=== PATIENT | male | born 1985 | race Caucasian/White ===

== ENCOUNTER → 2019-02-03 16:55 | Outpatient (CLI) | payer BC, SELFPAY ==
[2019-02-03 18:59] LABS: Uric Acid 3.3 mg/dL (2.6-7.2)
[2019-02-03 19:14] LABS: Amphetamine/Metha Screen,Urine Positive ng/mL (<1000); Barbiturates Screen,Urine Negative ng/mL (<200); Benzodiazepines Screen,Urine Negative ng/mL (<200); Cannabinoid Screen,Urine Positive ng/mL (<50); Cocaine Screen,Urine Negative ng/mL (<300); Methadone Screen,Urine Negative ng/mL (<300); Opiate Screen,Urine Negative ng/mL (<300); Phencyclidine Screen,Urine Negative ng/mL (<25)
[2019-02-05 15:03] LABS: RA Latex Turbid. <10.0 IU/mL (0.0-13.9)
[2019-02-05 19:45] LABS: Antinuclear Antibodies, IFA Positive (.)
[2019-02-09 19:10] LABS: Amphetamine Positive (.); Amphetamines Positive (.); Methamphetamine Positive (.)
[2019-02-10 14:15] LABS: Amphetamine (GC/MS) 1286 ng/mL (Cutoff=500); Methamphetamine (GC/MS) 1454 ng/mL (Cutoff=500)
== END ==
PROVIDERS: Visit Provider Emergency Medicine
DX: R53.83 Other fatigue (principal); Z79.899 Other long term (current) drug therapy
CPT/HCPCS: 80305; 80324; 84550; 86038; 86431; 86618

== ENCOUNTER 2022-01-23 10:28 | Emergency (ER) | payer BC, SELFPAY ==
[2022-01-23] VITALS (7 sets, daily range): BP systolic 109–151; BP diastolic 63–89; PULSE 98–148; RESP 16–20; TEMP 37.2–37.7; O2SAT 95–98; BMI 22.9
--- NOTE | 2022-01-23 10:28 | XR_ITS ---
FINAL REPORT CLINICAL HISTORY: psych clearance, hallucination FINDINGS: SINGLE VIEW CHEST. The heart is normal in size. The mediastinum is unremarkable. The lungs are clear. There is no pneumothorax. IMPRESSION: No acute process. Reviewed, Interpreted and Dictated by Samuel Merida MD Transcribed by Tracy Lepe Authenticated and [facility]
--- NOTE | 2022-01-23 10:31 | PC.NURSE ---
ANABELLE MCKEON at
--- NOTE | 2022-01-23 10:34 | PC.NURSE ---
EKG delayed due to patient being very fidgety and non compliant with laying still. Will attempt once patient has calmed down. MD is aware
--- NOTE | 2022-01-23 10:35 | HMH.EDGENADL ---
ED Disposition Clinical Impression: Acute psychosis Disposition: Xfer Psychiatric Hosp Condition on Discharge: Fair Referrals: Nathanael Mendez MD [Primary Care Provider] - - Critical Care Critical Care Time: Yes Attestation: On 01/23/22, the high probability of a clinically significant, sudden or life threatening deterioration of the following system(s) required my full and direct attention, intervention and personal management. The time I documented below is in addition to time spent performing reported procedures but includes the following listed in this critical care notation. Total Critical Care Time: 45 Vital system(s) involved:: Central Nervous System My critical care processes included: Assessment & monitoring of V/S, Initial and Re-exams, Data Review/Interpretation, Coordinating Care, Medication Orders and management, Documentation Medical Decision Making - Medical Records Medical records reviewed: Yes: I reviewed the patient's medical records. MR Comment: Reviewed his only primary care visit on our medical record system, which was with Dr. Mendez in 2019 as an initial visit for chronic joint pains. He was referred to pain management. He had drug screens positive for amphetamines and methamphetamine. - Jeff Inquiry Pt receiving controlled substance: Yes Jeff was queried for this patient: Yes Risks and benefits of using a controlled substance: were not discussed with pt by me Comment: Noted to have 2 prescriptions for Percocet in September from Dr. Salguero Vital Signs: 01/23/22 10:24 01/23/22 12:03 01/23/22 12:30 Temperature 99.8 F H Temperature Source Oral Pulse Rate 109 H 107 H Pulse Rate [Left Radial] 148 H Respiratory Rate 20 16 Blood Pressure 140/74 132/77 Blood Pressure [Right Arm] 151/89 H Blood Pressure Mean 83 Blood Pressure Mean [Right Arm] 109 Blood Pressure Source [Right Arm] Automatic Cuff Blood Pressure Position [Right Arm] Sitting 02 Sat by Pulse Oximetry 97 95 95 Oxygen Delivery Method Room Air Room Air Room Air 01/23/22 13:00 01/23/22 13:30 01/23/22 14:00 Temperature Temperature Source Pulse Rate 98 H 100 H 103 H Pulse Rate [Left Radial] Respiratory Rate Blood Pressure 110/64 116/63 109/66 L Blood Pressure [Right Arm] Blood Pressure Mean 79 71 72 Blood Pressure Mean [Right Arm] Blood Pressure Source [Right Arm] Blood Pressure Position [Right Arm] 02 Sat by Pulse Oximetry 96 96 98 Oxygen Delivery Method - Lab Data Lab Results 01/23/22 10:38: WBC 7.8, RBC 4.57 L, Hgb 13.8 L, Hct 42.0, MCV 91.8, MCH 30.2, MCHC 32.8, RDW 14.4, Plt Count 187, MPV 9.3, Neut % (Auto) 71.2, Lymph % (Auto) 18.8, Crawford % (Auto) 7.5, Eos % (Auto) 1.5, Baso % (Auto) 1.1, Neut # (Auto) 5.6, Lymph # (Auto) 1.5, Crawford # (Auto) 0.6, Eos # (Auto) 0.1, Baso # (Auto) 0.1 01/23/22 10:38: Sodium 141, Potassium 3.5, Chloride 103, Carbon Dioxide 28, Anion Gap 13.5, BUN 14, Creatinine 0.80, Estimated Creat Clear 130, Estimated GFR 109, Est GFR ( Amer) 132, Glucose 82, Calcium 9.7, Total Bilirubin 0.7, AST 30, ALT 28, Alkaline Phosphatase 87, Troponin I < 0.01, Total Protein 7.8, Albumin 4.6, Globulin 3.2, Albumin/Globulin Ratio 1.4, Salicylates < 1.0 L, Acetaminophen < 10 L 01/23/22 10:38: Plasma/Serum Alcohol < 10 01/23/22 11:56: SARS-CoV-2 (PCR) Not detected, Influenza A Untype (PCR) Not detected, Influenza Type B (PCR) Not detected Result diagrams: 01/23/22 10:38 01/23/22 10:38 Orders (Tests/Meds): ED MEDICATIONS Generic Name Dose Route Start Last Admin Trade Name Freq PRN Reason Stop Dose Admin Olanzapine 10 mg 01/23/22 11:03 01/23/22 11:21 Olanzapine 10 Mg Vial IM 10 mg Q2HP PRN Administration Agitation Sodium Chloride 10 ml 01/23/22 10:28 Sodium Chloride 0.9% 10ml Flush Syringe IV 02/22/22 10:27 NEEDED PRN Maintain IV Site Discontinued Medications Generic Name Dose Route Start Last Admin Trade Name Ruben
--- NOTE | 2022-01-23 10:39 | PC.NURSE ---
IV established, blood obtained and sent to the lab
[2022-01-23 10:48] LABS: Basophils # 0.1 K/mm3 (0-0.2); Basophils % 1.1 % (0.1-2.0); Eosinophils # 0.1 K/mm3 (0.0-0.4); Eosinophils % 1.5 % (0.1-12.0); Hemoglobin 13.8 g/dL (14.1-18.0); Lymphocytes # 1.5 K/mm3 (0.7-4.5); Lymphocytes % 18.8 % (10-50); Mean Corpuscular HGB Conc 32.8 g/dL (31.8-35.4); Mean Corpuscular Hemoglobin 30.2 pg (27.0-31.2); Mean Corpuscular Volume 91.8 fl (80-94); Mean Platelet Volume 9.3 fl (7.4-10.4); Monocytes # 0.6 K/mm3 (0.1-1.0); Monocytes % 7.5 % (1.7-9.3); Neutrophils # 5.6 K/mm3 (1.8-7.8); Neutrophils % 71.2 % (37.0-80.0); Platelet Count 187 K/mm3 (142-424); Red Blood Count 4.57 M/mm3 (4.60-6.20); Red Cell Distribution Width 14.4 % (11.5-17.5); White Blood Count 7.8 K/mm3 (4.8-10.8)
[2022-01-23 10:52] LABS: Alanine Aminotransferase 28 U/L (12-78); Albumin Level 4.6 g/dl (3.5-5.0); Albumin/Globulin Ratio 1.4 (1.1-1.8); Alkaline Phosphatase 87 U/L (38-126); Anion Gap 13.5 mEq/L (5-15); Aspartate Amino Transferase 30 U/L (17-59); Bilirubin,Total 0.7 mg/dl (0.2-1.3); Blood Urea Nitrogen 14 mg/dl (9-20); Calcium 9.7 mg/dl (8.4-10.2); Carbon Dioxide 28 mmol/L (22.0-30.0); Chloride 103 mmol/L (98-107); Creatinine Clearance Estimated 130 mL/min (50-200); Estimated Glomerular Filt Rate 109 ml/min (>60); GFR (African American) 132 ML/MIN (>60); Globulin 3.2 g/dL (1.3-3.2); Glucose 82 mg/dl (74-100); Potassium 3.5 mmoL/L (3.5-5.1); Sodium 141 mmol/L (136-145); Total Protein,Serum 7.8 g/dl (6.3-8.2)
[2022-01-23 10:53] LABS: Acetaminophen < 10 ug/ml (10-30); Salicylate < 1.0 mg/dL (2.0-20.0)
[2022-01-23 10:54] LABS: Ethyl Alcohol < 10 mg/dl (0-10)
--- NOTE | 2022-01-23 11:00 | PC.NURSE ---
vital signs delayed d/t pt restless in the bed refusing vital signs. MD notified and medication orders placed.
[2022-01-23 11:06] LABS: Troponin I < 0.01 ng/ml (0.00-0.034)
--- NOTE | 2022-01-23 11:16 | PC.NURSE ---
Called [employer] to inform Officer Caryn that the involuntary petition is complete and can be picked up.
--- NOTE | 2022-01-23 11:20 | PC.NURSE ---
pt given glass of water per his request (okayed by ANABELLE MCKEON) pt also given urinal, pt reports unable to urinate at this time. Urinal at BS. Pt sitting up in the bed, pt continuing to see spiders and ticks . Reports to staff I am not hallucinating they are everywhere trying to bite . Curtain to room open for safety, pt room in front of nurses station. will continue to monitor
--- NOTE | 2022-01-23 11:33 | PC.NURSE ---
waiting cook station back from officer malik at [employer] with fax number for the lobby porter cook station for involuntary hold paperwork
--- NOTE | 2022-01-23 11:35 | PC.NURSE ---
pt refused to give urine via in and out cath and by urinal.
--- NOTE | 2022-01-23 11:41 | PC.NURSE ---
officer malik from [employer] came and got involuntary hold paperwork at this time, states he is going to take it to the judge's clerk for signature.
--- NOTE | 2022-01-23 11:42 | PC.NURSE ---
Contacted [facility] regarding patient admission, spoke with Hair. She informed us to call the provider to provider number at [phone] to speak to ILDEFONSO. She also informed us to fax over all reports from todays visit to [phone] once we receive the judges signed petition.
--- NOTE | 2022-01-23 11:47 | PC.NURSE ---
ANABELLE MCKEON speaking with Sandrine with [facility] providers through admissions.
--- NOTE | 2022-01-23 11:54 | PC.NURSE ---
ekg performed and given to
--- NOTE | 2022-01-23 11:57 | ECG_ITS ---
APPROVED REPORT Exam: Resting ECG HR:112 bpm ECG Measurements Heart Rate 112 AXES TN 128 P 57 QRSd 110 QRS 59 QT 317 T 65 QTc 383 Conclusion SINUS TACHYCARDIA ABNORMAL RHYTHM ECG UNCONFIRMED REPORT Electronically signed by : Kenny Salguero MD 01/23/2022 17:56:42
--- NOTE | 2022-01-23 11:57 | PC.NURSE ---
covid swab sent to the lab
--- NOTE | 2022-01-23 11:57 | PC.NURSE ---
states pt has been accepted to [facility]. states once petition is signed pt can go
[2022-01-23 12:01] LABS: Coronavirus 19, PCR Not Detected (NotDetected); Influenza A, PCR Not Detected (NotDetected); Influenza B, PCR Not Detected (NotDetected)
--- NOTE | 2022-01-23 12:03 | PC.NURSE ---
portable rad at the bedside
--- NOTE | 2022-01-23 12:12 | PC.NURSE ---
pt sleeping at this time. vitals able to be obtained. paperwork being faxed to [facility] and awaiting approval from the real estate salesperson for medical hold.
--- NOTE | 2022-01-23 12:34 | PC.NURSE ---
Still awaiting for petition to be signed and brought back to us by [place] [employer] officer.
--- NOTE | 2022-01-23 13:33 | PC.NURSE ---
pt continuing to rest
--- NOTE | 2022-01-23 14:11 | PC.NURSE ---
pt resting comfortably with no noticeable needs
--- NOTE | 2022-01-23 14:13 | PC.NURSE ---
called officer malik for update on winch stripper paperwork. no answer.
--- NOTE | 2022-01-23 14:15 | PC.NURSE ---
calling dispatch to notify officer malik to call ed for update
--- NOTE | 2022-01-23 14:32 | PC.NURSE ---
officer estella here for transport to [facility]. documentation given to the officer and pt wheeled out via wheelchair
== END 2022-01-23 14:36 ==
PROVIDERS: Emergency Provider Emergency Medicine; PCP Emergency Medicine
DX: F23 Brief psychotic disorder (principal)
CPT/HCPCS: 71045; 80053; 80329; 84484; 85025; 93005; 96372; 96374; 99283; 99284; C9803; U0003; U0005

== ENCOUNTER 2022-12-05 11:17 | Emergency (ER) | payer BC, SELFPAY ==
[2022-12-05 11:17] VITALS: BP 157/92; PULSE 121; RESP 18; TEMP 36.2; O2SAT 97; BMI 37.6
[2022-12-05 11:26] VITALS: BP 157/92; PULSE 126; RESP 16; O2SAT 98
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
--- NOTE | 2022-12-05 11:55 | PC.NURSE ---
[facility] at bedside. Paper work started for 72 hour hold.
--- NOTE | 2022-12-05 12:20 | PC.NURSE ---
72 hour hold paperwork faxed to Judge Vazquez at this time. Called Edilberto Swanson [facility] intake regarding pt. Informed to fax [phone] and d/c summary at time of transport.
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
--- NOTE | 2022-12-05 12:29 | PC.NURSE ---
Paperwork fax didn't go through, [facility] called at this time and state they will work on obtaining fax information.
--- NOTE | 2022-12-05 12:42 | PC.NURSE ---
Pamela Castle RN faxed papers to [facility]
--- NOTE | 2022-12-05 12:52 | PC.NURSE ---
pt will not allow staff to obtain vital signs.
--- NOTE | 2022-12-05 13:15 | PC.NURSE ---
vitals not taken do to pt irritability, pt is resting asnd is within eyesight
--- NOTE | 2022-12-05 14:02 | PC.NURSE ---
Fidelia with Judge Vazquez called and stated paperwork needed redone d/t not being able to read. paperwork filled out and refaxed.
--- NOTE | 2022-12-05 15:24 | PC.NURSE ---
Placed call to judges office, they advised the hold was denied, MD spoke with judges office they will be sending another, with further information
[2022-12-05 15:49] VITALS: BP 124/94; PULSE 112; RESP 18; O2SAT 97
--- NOTE | 2022-12-05 15:50 | PC.NURSE ---
pt asked for something to eat. pt given sandwich, drinks and a water bottle at this time.
--- NOTE | 2022-12-05 16:34 | PC.NURSE ---
placed call to courthouse no answer, called dispatch, they advised they had the paperwork for 72 hr hold and that it had not been signed by the probate judge, dispatch was going to get in touch with him when they had a chance.
--- NOTE | 2022-12-05 16:49 | PC.NURSE ---
spoke with judge welch who states that he has spoken with dispatch and they are sending over paperwork to judge welch. Asked judge welch to contact ER to confirm he has received paperwork. Asked dispatch to let ER know when they have received paperwork back from judge ewlch. Updated ER on the above.
--- NOTE | 2022-12-05 17:20 | PC.NURSE ---
spoke with judge welch reports he has faxed paperwork back to dispatch
--- NOTE | 2022-12-05 18:12 | PC.NURSE ---
dispatch faxed paper work to us at this time. dispatch states it will be 1999 before a deputy can transport patient to [facility].
--- NOTE | 2022-12-05 18:17 | PC.NURSE ---
pt given water and sandwich ordered
--- NOTE | 2022-12-05 18:27 | PC.NURSE ---
pt given sandwich and chips
--- NOTE | 2022-12-05 20:22 | PC.NURSE ---
contacted dispatch checking status on transport for pt to [facility]
[2022-12-05 20:49] VITALS: BP 124/94; PULSE 112; RESP 18; TEMP 36.2; O2SAT 97
--- NOTE | 2022-12-05 20:51 | PC.NURSE ---
pt confused any vitals signs to be obtained
== END 2022-12-05 20:52 ==
PROVIDERS: Emergency Provider Emergency Medicine
DX: R41.82 Altered mental status, unspecified (principal); F17.210 Nicotine dependence, cigarettes, uncomplicated
CPT/HCPCS: 96374; 99285